=== PATIENT | male | born 1940 | race Caucasian/White ===

== ENCOUNTER 2020-04-05 17:26 | Inpatient (IN) | payer MEDICARE, OTHER ==
[~2020-04-05] VITALS: Ht 182.9 cm; Wt 88.6 kg
[2020-04-05 18:32] LABS: BASOPHIL 0.3 % (0-2); EOSINOPHIL 0 % (0-7); HCT 42.6 % (42.0-52.0); LYMPHOCYTE 34.6 % (15-48); MCH 29.8 pg (25.0-31.0); MCHC 32.9 g/dL (32.0-36.0); MCV 90.6 fL (78.0-100.0); MONOCYTE 13.1 % (0-12); MPV 10.3 fL (6.0-9.5); NEUTROPHIL 51.7 % (41-80); NRBC 0; PLT 120 K/uL (150-400); WBC 3.1 K/uL (4.0-10.5)
[2020-04-05 18:40] LABS: INR 1.02 (0.9-1.2); PROTHROMBIN TIME 12.7 SECONDS (11.4-13.6)
[2020-04-05 18:55] LABS: PRO-BNP 197 pg/mL (<450)
[2020-04-05 19:10] LABS: CORONAVIRUS 2019 SARS-COV-2 POSITIVE (NEGATIVE); INFLUENZA A NAA NEGATIVE (NEGATIVE)
[2020-04-05 19:11] LABS: LACTIC ACID 1.1 mmol/L (0.4-1.9)
[2020-04-05 19:22] LABS: ALBUMIN 2.9 g/dL (3.4-5.0); BILIRUBIN - TOTAL 0.6 mg/dL (0.2-1.0); BUN/CREAT RATIO (CALC) 17.3 RATIO; C-REACTIVE PROTEIN 1.4 mg/dL (<=0.90); CREATININE 1.33 mg/dL (0.67-1.17); GLOBULIN (CALCULATION) 3.5 g/dL; POTASSIUM 3.9 mmol/L (3.5-5.1); TOTAL PROTEIN 6.4 g/dL (6.4-8.2)
[2020-04-05 20:33] LABS: BILIRUBIN NEGATIVE (NEGATIVE); BLOOD TRACE-INTACT Ery/uL (NEGATIVE); CLARITY CLEAR (CLEAR); COLOR YELLOW (YELLOW); GLUCOSE (U) NORMAL (NORMAL); LEUKOCYTES NEGATIVE Leu/uL (NEGATIVE); NITRITE NEGATIVE (NEGATIVE); PROTEIN NEGATIVE (NEGATIVE); UROBILINOGEN 0.2 mg/dL (0.2-1.0); pH 5.5 (5.0-9.0)
[2020-04-05 20:44] LABS: MUCOUS TRACE; SQUAMOUS EPITHELIAL CELLS RARE; URINARY WBC RARE
[2020-04-05] MEDS ORDERED: LASIX80 MG PO (23:30)
[2020-04-05] MEDS ORDERED: TOPROL XL 25MG25 MG PO (23:32)
[2020-04-05] MEDS ORDERED: FOLIC ACID1 MG PO (23:34)
[2020-04-05] MEDS ORDERED: LIPITOR20 MG PO (23:34)
[2020-04-05] MEDS ORDERED: POTASSIUM CHLO10 MEQ PO (23:36)
[2020-04-05] MEDS ORDERED: ASPIRIN EC81 MG PO (23:37)
[2020-04-05] MEDS ORDERED: PULMICORT0.5 MG/2 M NEB (23:38)
[2020-04-05] MEDS ORDERED: BROVANA15 MCG/2 M INH (23:40)
[2020-04-05] MEDS ORDERED: YUPELRI175 MCG/3 INH (23:41)
[2020-04-06 04:22] LABS: BASOPHIL 0 % (0-2); EOSINOPHIL 0 % (0-7); HCT 39.3 % (42.0-52.0); LYMPHOCYTE 38.4 % (15-48); MCH 29.8 pg (25.0-31.0); MCHC 33.1 g/dL (32.0-36.0); MCV 90.1 fL (78.0-100.0); MONOCYTE 6.9 % (0-12); MPV 10.2 fL (6.0-9.5); NEUTROPHIL 54.1 % (41-80); NRBC 0; PLT 103 K/uL (150-400); RBC 4.36 M/uL (4.70-6.00); RDW 13.8 % (11.5-14.0)
[2020-04-06 04:35] LABS: WBC 1.6 K/uL (4.0-10.5)
[2020-04-06 04:37] LABS: BUN/CREAT RATIO (CALC) 21.6 RATIO; CREATININE 1.16 mg/dL (0.67-1.17); POTASSIUM 4.1 mmol/L (3.5-5.1)
--- NOTE | 2020-04-06 11:09 | NUR ---
REPORTS HE IS INDEPENDENT WITH CARE PRIOR TO ILLNESS; PT DOES SEE DR. CAAL FOR LUNG CANCER; PT MAY BENIFIT FROM HOME HEALTH PLEASE LET ME KNOW IF PT WILL HAVE ANY D/C NEEDS
--- NOTE | 2020-04-06 11:12 | NUR ---
PT DOES LIVE WITH SPOUSE
[2020-04-07 04:18] LABS: BASOPHIL 0 % (0-2); EOSINOPHIL 0 % (0-7); HGB 13.3 g/dl (13.2-18.0); LYMPHOCYTE 15.6 % (15-48); MCH 29.6 pg (25.0-31.0); MCHC 33.3 g/dL (32.0-36.0); MCV 88.9 fL (78.0-100.0); MONOCYTE 11.1 % (0-12); MPV 9.9 fL (6.0-9.5); NRBC 0; PLT 132 K/uL (150-400); RDW 13.4 % (11.5-14.0); WBC 5.8 K/uL (4.0-10.5)
[2020-04-07 05:05] LABS: ALBUMIN 2.5 g/dL (3.4-5.0); BILIRUBIN - TOTAL 0.6 mg/dL (0.2-1.0); BUN/CREAT RATIO (CALC) 25.4 RATIO; C-REACTIVE PROTEIN 0.9 mg/dL (<=0.90); CREATININE 1.22 mg/dL (0.67-1.17); GLOBULIN (CALCULATION) 3.3 g/dL; POTASSIUM 3.5 mmol/L (3.5-5.1); TOTAL PROTEIN 5.8 g/dL (6.4-8.2)
--- NOTE | 2020-04-08 05:29 | NUR ---
DROP HAMMER SETTER UP NOTIFIED OF VANC THROUGH CRITICAL AT 24, DROP HAMMER SETTER UP STATED TO HOLD AND CALL PHARMACY FOR REDOSING, PHARMACY CONTACTED NO ANSWER WILL REATTEMPT Q5MINS FOR REDOSING, VANC 1.5G/500ML NS HELD AT THIS TIME PER DROP HAMMER SETTER UP ORDER
[2020-04-09 03:09] LABS: BASOPHIL 0.3 % (0-2); EOSINOPHIL 0 % (0-7); HCT 38.5 % (42.0-52.0); HGB 12.5 g/dl (13.2-18.0); LYMPHOCYTE 17.9 % (15-48); MCH 29.1 pg (25.0-31.0); MCHC 32.5 g/dL (32.0-36.0); MCV 89.5 fL (78.0-100.0); MONOCYTE 14.5 % (0-12); MPV 10.1 fL (6.0-9.5); NEUTROPHIL 65.7 % (41-80); NRBC 0; PLT 138 K/uL (150-400); RDW 13.6 % (11.5-14.0); WBC 3.8 K/uL (4.0-10.5)
[2020-04-09 03:26] LABS: BUN/CREAT RATIO (CALC) 27.2 RATIO; CREATININE 1.25 mg/dL (0.67-1.17); POTASSIUM 3.2 mmol/L (3.5-5.1)
--- NOTE | 2020-04-09 09:39 | NUR ---
SPOKE WITH PT. VIA PHONE. PT. STATES HE BELIEVES HE IS SCHEDULED TO GO HOME TOMORROW. HE IS INDENPENDENT. HE LIVES WITH HIS SPOUSE. HE IS REFUSING TO HAVE O2 AT HOME. IF HE HAS TO HAVE HH. HE WANTS [facility] [place].
[2020-04-10] MEDS ORDERED: DEXAMETHASONE 2M2 MG PO (13:56)
[2020-04-10] MEDS ORDERED: AUGMENTIN 875-1 EACH PO (13:56)
--- NOTE | 2020-04-10 14:00 | NUR ---
PT. TO D/C HOME THIS DATE. HE REQUESTS [facility] FOR NURSING, PT/OT. HE WILL RECEIVE O2 TRAVEL [facility]
== END 2020-04-10 15:35 | disposition home health service (06) | DRG 177 ==
LOC: FER 17:26 → FTCU 20:58 → FMS 04-08 15:30
PROVIDERS: Emergency Medicine; Internal Medicine; Nurse Practitioner; ADMIT Internal Medicine
PROC: 8E0ZXY6 Isolation (ICD-10-PCS; principal; 2020-04-05)
PROC: XW033E5 Introduction of Remdesivir Anti-infective into Peripheral Vein, Percutaneous Approach, New Technology Group 5 (ICD-10-PCS; 2020-04-05)
PROC: 3E0333Z Introduction of Anti-inflammatory into Peripheral Vein, Percutaneous Approach (ICD-10-PCS; 2020-04-05)
DX: U07.1 COVID-19 (principal); J12.82 Pneumonia due to coronavirus disease 2019; J96.01 Acute respiratory failure with hypoxia; J44.1 Chronic obstructive pulmonary disease with (acute) exacerbation; J44.0 Chronic obstructive pulmonary disease with (acute) lower respiratory infection; C34.90 Malignant neoplasm of unspecified part of unspecified bronchus or lung; I48.91 Unspecified atrial fibrillation; I10 Essential (primary) hypertension; Z88.6 Allergy status to analgesic agent; N40.0 Benign prostatic hyperplasia without lower urinary tract symptoms; Z95.0 Presence of cardiac pacemaker; Z79.82 Long term (current) use of aspirin
CPT/HCPCS: 36415; 71046; 71250; 80048; 80053; 80202; 81001; 82533; 82728; 83540; 83605; 83615; 83735; 83880; 84145; 84439; 84443; 84484; 85025; 85610; 86140; 87040; 93005; 94010; 94640; 94667; 94668; C9399; J1100; J1650; J2543; J2930; J3370; J7040; J7050; U0002